=== PATIENT | female | born 1945 | race Caucasian/White ===

== ENCOUNTER 2018-02-02 09:41 | Emergency (ER) | payer OTHER, MEDICARE ==
[2018-02-02 09:46] VITALS: BP 167/88; PULSE 74; TEMP 98.1; BMI 21.7
--- NOTE | 2018-02-02 10:02 | PDOC ---
History of Present Illness - General Chief Complaint: Pain, Acute Stated Complaint: FALL Time Seen by Provider: 02/02/18 09:43 History Source: Patient Exam Limitations: No Limitations - History of Present Illness Initial Comments: 02/02/18 09:57 healthy 72y/o F with no significant pmh p/w L forehead and L shoulder pain s/p slip and fall from shower. slipped on wet tiles, struck adducted L upper arm and L forehead simultaneously on tile floor. No LOC, was able to stand independently but developed delayed onset of L forehead pain and L upper arm pain, predominantly with abduction. no generalized headache, no vision change/ speech change/neck pain/n/v/focal deficit. no motor or sensory deficit. not on blood thinners, no other injuries and was ambulating comfortably on hips/knees. Past History - Past Medical History Allergies/Adverse Reactions: Allergies Allergy/AdvReac Type Severity Reaction Status Date / Time No Known Allergies Allergy Verified 02/02/18 09:42 Home Medications: Ambulatory Orders NK [No Known Home Medication] 02/02/18 Anemia: No Asthma: No Cancer: Yes (OVARIAN CA,FOLLOWED WITH CHEMOTHERAPY) Cardiac Disorders: No CVA: No COPD: No CHF: No Dementia: No Diabetes: No GI Disorders: No Disorders: No HTN: No Hypercholesterolemia: No Liver Disease: No Seizures: No Thyroid Disease: No - Surgical History Abdominal Surgery: No Appendectomy: No Cardiac Surgery: No Cholecystectomy: No Lung Surgery: No Neurologic Surgery: No Orthopedic Surgery: Yes (RIGHT HAND TRIGGER FINGER /) - Suicide/Smoking/Psychosocial Hx Smoking History: Former smoker Have you smoked in the past 12 months: No Information on smoking cessation initiated: No Hx Alcohol Use: No Drug/Substance Use Hx: No Substance Use Type: None Hx Substance Use Treatment: No Review of Systems - Review of Systems HEENTM: No: Blurred Vision, Recent change in vision, Double Vision Respiratory: No: Shortness of Breath Cardiac (ROS): No: Chest Pain, Syncope ABD/GI: No: Nausea, Vomiting Musculoskeletal: Yes: Joint Pain, Muscle Pain Integumentary: Yes: Bruising Neurological: No: Headache All Other Systems: Reviewed and Negative *Physical Exam - Vital Signs Last Vital Signs Temp Pulse Resp BP Pulse Ox 98.1 F 74 17 167/88 98 02/02/18 09:43 02/02/18 09:43 02/02/18 09:43 02/02/18 09:43 02/02/18 09:43 - Physical Exam Comments: 02/02/18 10:03 VS as noted, bp slightly elevated alert, nad, ambulating comfortably no head injury/skull deformity ecchymosis over L eye, no bony deformity or ttp. PERRL, EOMI. va intact. no orbital deformity or step-off no c-spine ttp, FROM s1s2 rrr, ctab, symmetric without rib injury L UE: bruising over upper arm, no bony deformity or ttp, limited ROM on L abduction 2/2 pain, full PROM. elbow/wrist/hand intact no spine ttp pelvis stable, FROM hip, ambulating cn intact, 5/5 motor x4, sensation intact throughout, gait stable other than L eye bruise, skin intact without scalp hematoma or laceration ED Treatment Course - RADIOLOGY Radiology Studies Ordered: Category Date Time Status HEAD CT WITHOUT CONTRAST [CT] Stat CT Scan 02/02/18 09:47 Ordered HUMERUS-LEFT [RAD] Stat Radiology 02/02/18 09:47 Ordered SHOULDER-LEFT [RAD] Stat Radiology 02/02/18 09:47 Ordered Medical Decision Making - Medical Decision Making 02/02/18 10:23 72y/o F with mechanical slip and fall, isolated L forehead and L upper arm injury. neuro intact without red flags on history. L arm contusion, r/o fracture - nvi. ct head - on my prelim review, no acute injury L shoulder and humerus xray - on my prelim review, no acute injury ice, sling dispo 02/02/18 10:34 ct and xray unremarkable. ambulating. agrees with d/c plan, understands return criteria. *DC/Admit/Observation/Transfer Diagnosis at time of Disposition: Accidental fall Qualifiers: Encounter type: initial encounter Qualified Code(s): W19.XXXA - Unspecified fall, initial encounter Contusion, upper arm Qualifiers: Encounter type: initial encounter Laterality: left Qualified Code(s): S40.022A - Contusion of left upper arm, initial encounter Closed head injury Qualifiers: Encounter type: initial encounter Qualified Code(s): S09.90XA - Unspecified injury of head, initial encounter - Discharge Dispostion Condition at time of disposition: Stable - Referrals - Patient Instructions Printed Discharge Instructions: DI for Concussion, DI for Closed Head Injury Additional Instructions: Activity as tolerated, sling as needed for comfort but move the arm around every few hours. Tylenol and/or Ibuprofen as needed for pain. Apply ice to the affected areas for 20-30 minutes every 2-3 hours to reduce swelling. Return to the ER for any new or concerning symptoms, including severe swelling or discoloration, increased pain, numbness or tingling, bad headache or vision change or vomiting/confusion. - Post Discharge Activity
== END 2018-02-02 10:47 | disposition home or self-care (01) ==
LOC: FER 09:41
DX: S09.90XA Unspecified injury of head, initial encounter (principal); S40.022A Contusion of left upper arm, initial encounter; W18.2XXA Fall in (into) shower or empty bathtub, initial encounter; Y93.89 Activity, other specified; Y92.002 Bathroom of unspecified non-institutional (private) residence as the place of occurrence of the external cause; Z85.43 Personal history of malignant neoplasm of ovary
CPT/HCPCS: 70450-TC; 73030-TC-LT-FY; 73060-TC-LT-FY; 99282-25